=== PATIENT | female | born 1990 | race Hispanic/Latino ===

== ENCOUNTER 2017-02-22 11:12 | Emergency (ER) | payer SELFPAY ==
[~2017-02-22] VITALS: Ht 167.6 cm; Wt 99.8 kg
[~2017-02-22 11:12] MED LIST: NKM
[2017-02-22] MEDS ORDERED: Ketorolac 30mg Inj IV ONE (11:15)
--- NOTE | 2017-02-22 11:29 | Emergency Room Report ---
History of Present Illness General Chief Complaint: Abdominal Pain Source: Patient, EMS Present Illness HPI Patient present with right-sided abdominal pain Started last night Patient reports several episodes of vomiting and diarrhea Which began together Denies any fever Denies any blood in stool Denies any headache visual changes pain is that of 10 Patient reports lower back also right upper and lower abdomen Denies any dysuria frequency denies any vaginal discharge Patient has had previous cholecystectomy Allergies: Coded Allergies: No Known Allergies (Verified , 06/21/11) Patient History Past Medical History: see triage record Pertinent Family History: none Reviewed Nursing Documentation: PMH: Agreed, PSxH: Agreed Nursing Documentation-PMH Hx Gastrointestinal Problems: Yes - Cholecystectomy 2011 Review of Systems All Other Systems: negative except mentioned in HPI Physical Exam Vital Signs Date Time Temp Pulse Resp B/P Pulse Ox O2 Delivery O2 Flow Rate FiO2 02/22/17 11:01 98.1 95 16 105/65 99 Room Air Sp02 EP Interpretation: reviewed, normal General Appearance: moderate distress - Patient in acute pain Head: normocephalic, atraumatic Eyes: bilateral eye EOMI, bilateral eye PERRL ENT: hearing grossly normal, normal pharynx, TMs + canals normal, uvula midline Neck: full range of motion, supple, no meningismus, no bony tend Respiratory: lungs clear, normal breath sounds, no rhonchi, no respiratory distress, no retraction, no accessory muscle use Cardiovascular #1: normal peripheral pulses, regular rate, rhythm, no edema, no gallop, no JVD, no murmur Gastrointestinal: normal bowel sounds, soft, no mass, no organomegaly, non- distended, no guarding, no hernia, no pulsatile mass, no rebound - However the patient subjectively uncomfortable on the right upper and lower abdomen Genitourinary: no CVA tenderness Musculoskeletal: normal inspection Neurologic: oriented x3, responsive, rib knitter III-XII nml as tested, motor strength/ tone normal, sensory intact Psychiatric: mood/affect normal Skin: normal color, no rash, warm/dry, palpation normal Lymphatic: normal inspection, no adenopathy Medical Decision Making Diagnostic Impression: Primary Impression: Vomiting Additional Impression: Abdominal pain ER Course With the patient's history and examination, multiple differentials considered, including but not limited to , ectopic , ovarian torsion, gastritis, cholecystitis, pancreatitis, appendicitis Patient's CAT scan reveals no acute disease with the appendix Mild hepatic steatosis Patient's blood work is at baseline levels as well Patient has continued to be significantly improved and at this time stable for initial conservative outpatient trial Labs Test 02/22/17 11:15 02/22/17 11:30 White Blood Count 7.5 K/UL (4.8-10.8) Red Blood Count 4.72 M/UL (4.20-5.40) Hemoglobin 13.7 G/DL (12.0-16.0) Hematocrit 42.5 % (37.0-47.0) Mean Corpuscular Volume 90 FL (80-99) Mean Corpuscular Hemoglobin 28.9 PG (27.0-31.0) Mean Corpuscular Hemoglobin Concent 32.1 G/DL (32.0-36.0) Red Cell Distribution Width 12.2 % (11.6-14.8) Platelet Count 288 K/UL (150-450) Mean Platelet Volume 7.0 FL (6.5-10.1) Neutrophils (%) (Auto) 70.8 % (45.0-75.0) Lymphocytes (%) (Auto) 17.0 % (20.0-45.0) Monocytes (%) (Auto) 7.8 % (1.0-10.0) Eosinophils (%) (Auto) 3.5 % (0.0-3.0) Basophils (%) (Auto) 1.0 % (0.0-2.0) Sodium Level 139 mEQ/L (135-145) Potassium Level 4.1 mEQ/L (3.4-4.9) Chloride Level 100 mEQ/L (98-107) Carbon Dioxide Level 23 mEQ/L (20-30) Anion Gap 16 (5-15) Blood Urea Nitrogen 10 mg/dL (7-23) Creatinine 0.6 mg/dL (0.5-0.9) Estimat Glomerular Filtration Rate > 60 mL/min (>60) Glucose Level 96 mg/dL (74-106) Calcium Level 8.8 mg/dL (8.6-10.2) Total Bilirubin 0.4 mg/dL (0.0-1.2) Aspartate Amino Transf (AST/SGOT) 42 U/L (5-40) Alanine Aminotransferase (ALT/SGPT) 57 U/L (3-33) Alkaline Phosphatase 90 U/L (35-104) Total Protein 7.6 g/dL (6.6-8.7) Albumin 4.2 g/dL (3.5-5.2) Globulin 3.4 g/dL Albumin/Globulin Ratio 1.2 (1.0-2.7) Lipase 26 U/L (< 60) Urine Color Pale yellow Urine Appearance Clear Urine pH 6.5 (4.5-8.0) Urine Specific [place] 1.015 (1.005-1.035) Urine Protein Negative (NEGATIVE) Urine Glucose (UA) Negative (NEGATIVE) Urine Ketones Negative (NEGATIVE) Urine Occult Blood 4+ (NEGATIVE) Urine Nitrite Negative (NEGATIVE) Urine Bilirubin Negative (NEGATIVE) Urine Urobilinogen Normal MG/DL (0.0-1.0) Urine Leukocyte Esterase 2+ (NEGATIVE) Urine RBC 5-10 /HPF (0 - 2) Urine WBC 5-10 /HPF (0 - 2) Urine Squamous Epithelial Cells Few /LPF (NONE/OCC) Urine Bacteria Few /HPF (NONE) Urine HCG, Qualitative Negative Urine Opiates Screen Negative (NEGATIVE) Urine Barbiturates Screen Negative (NEGATIVE) Phencyclidine (PCP) Screen Negative (NEGATIVE) Urine Amphetamines Screen Negative (NEGATIVE) Urine Benzodiazepines Screen Negative (NEGATIVE) Urine Cocaine Screen Negative (NEGATIVE) Urine Marijuana (THC) Screen Negative (NEGATIVE) CT/MRI/US Diagnostic Results CT/MRI/US Diagnostic Results : Impression CT abdomen pelvis: No acute disease with the appendix, appendicolith, mild hepatic steatosis Last Vital Signs Date Time Temp Pulse Resp B/P Pulse Ox O2 Delivery O2 Flow Rate FiO2 02/22/17 11:01 98.1 95 16 105/65 99 Room Air Status: improved Disposition: HOME, SELF-CARE Condition: Improved Scripts Ondansetron Odt* (ZOFRAN ODT*) 4 Mg Tab.rapdis 4 MG ORAL Q6H Y for Nausea & Vomiting, #12 TAB 0 Refills Prov: KELLIRZAFAR D.O. 02/22/17 Acetaminophen With Codeine (T#3) (TYLENOL #3 TAB*) Y Tab 1 TAB ORAL Q8H Y for For Pain, #10 TAB Prov: IVONNEDORZAFAR D.O. 02/22/17 Ibuprofen* (MOTRIN*) 600 Mg Tablet 600 MG ORAL Q8H Y for For Pain, #20 TAB 0 Refills Prov: ZAFAR PATEL D.O. 02/22/17 Additional Instructions: Patient is provided with the discharge instructions notified to follow up with primary doctor in the next 2-3 days otherwise return to the er with any worsening symptoms. Please note that this report is being documented using [employer] technology. This can lead to erroneous entry secondary to incorrect interpretation by the dictating instrument. ZAFAR PATEL D.O. February 22, 2017 11:29
[2017-02-22 11:35] LABS: EOSINOPHILS % (AUTO) 3.5 % (0.0-3.0); MEAN CORPUSCULAR HEMOGLOBIN 28.9 PG (27.0-31.0); MEAN CORPUSCULAR HGB CONC 32.1 G/DL (32.0-36.0); MEAN CORPUSCULAR VOLUME 90 FL (80-99); MONOCYTES % (AUTO) 7.8 % (1.0-10.0); NEUTROPHILS % (AUTO) 70.8 % (45.0-75.0); PLATELET COUNT 288 K/UL (150-450); RED BLOOD COUNT 4.72 M/UL (4.20-5.40); RED CELL DISTRIBUTION WIDTH 12.2 % (11.6-14.8); WHITE BLOOD COUNT 7.5 K/UL (4.8-10.8)
[2017-02-22 11:42] VITALS: BP 105/65
[2017-02-22 11:45] LABS: APPEARANCE,URINE CLEAR; KETONES,URINE NEGATIVE (NEGATIVE); LEUKOCYTE ESTERASE ,URINE 2+ (NEGATIVE); NITRITE,URINE NEGATIVE (NEGATIVE); PH,URINE 6.5 (4.5-8.0); PROTEIN,URINE NEGATIVE (NEGATIVE); UROBILINOGEN,URINE NORMAL MG/DL (0.0-1.0)
[2017-02-22 11:56] LABS: ALANINE AMINOTRANSFERASE 57 U/L (3-33); ALBUMIN/GLOBULIN RATIO 1.2 (1.0-2.7); ANION GAP 16 (5-15); ASPARTATE AMINO TRANSFERASE 42 U/L (5-40); CALCIUM 8.8 mg/dL (8.6-10.2); CARBON DIOXIDE 23 mEQ/L (20-30); CHLORIDE 100 mEQ/L (98-107); CREATININE 0.6 mg/dL (0.5-0.9); GLOMERULAR FILTRATION RATE > 60 mL/min (>60); HEMOLYSIS 14; LIPASE 26 U/L (< 60); POTASSIUM 4.1 mEQ/L (3.4-4.9); SODIUM 139 mEQ/L (135-145); TOTAL PROTEIN 7.6 g/dL (6.6-8.7)
[2017-02-22 12:40] LABS: BACTERIA,URINE FEW /HPF; SQUAMOUS EPITHELIAL CELL,UR FEW /LPF (NONE/OCC)
[2017-02-22] MEDS ORDERED: ACETAMINOPHEN-1 EAC1 ORAL (13:50)
[2017-02-22] MEDS ORDERED: IBUPROFEN600 MG ORAL (13:50)
[2017-02-22 13:57] VITALS: BP 106/60
[2017-02-22] MEDS ORDERED: ZOFRAN ODT4 MG ORAL (13:57)
[2017-02-22 13:59] VITALS: BP 106/60
--- NOTE | 2017-02-24 09:39 | Diagnostic Imaging Report ---
Indication: Abdominal pain Technique: Continuous helical transaxial imaging of the abdomen and pelvis was obtained from the lung bases to the pubic symphysis during intravenous contrast administration. Coronal 2-D reformats were also obtained. Study obtained in a Siemens sensation [address] Total Dose length Product (DLP): [address] Dose Index Volume (CTDIvol): 20 mGy Comparison: 06-21-11 Findings: The lung bases are clear. The liver is mildly hypodense consistent with fatty infiltration. Cholecystectomy noted. The spleen and pancreas appear unremarkable. There is a tiny nonobstructive stones suspected within the lower pole the right kidney. There is no hydronephrosis identified. Appendix is normal. No free fluid or free air identified. Uterus noted. Impression: Tiny nonobstructive stone in the right kidney. No inflammatory process, abscess or other acute findings identified. Normal appendix Fatty liver Status post cholecystectomy The CT scanner at [facility] is accredited by the [employer] and the scans are performed using protocols designed to limit radiation exposure to as low as reasonably achievable to attain images of sufficient resolution adequate for diagnostic evaluation.
== END 2017-02-22 14:04 | disposition home or self-care (01) ==
LOC: EDBD 11:12 → EMR 11:44
DX: R10.9 Unspecified abdominal pain (principal); R11.10 Vomiting, unspecified; Z90.49 Acquired absence of other specified parts of digestive tract
CPT/HCPCS: 36415; 74177; 80053; 80300; 81003; 81025; 83690; 85025; 96374; 96375; 99284; J1885; Q9967

== ENCOUNTER 2019-02-28 12:17 | Emergency (ER) | payer MEDICAID ==
[~2019-02-28] VITALS: Ht 157.5 cm; Wt 88.0 kg
[~2019-02-28 12:17] MED LIST changes: +ACETAMINOPHEN-1 EAC1 ORAL; +IBUPROFEN600 MG ORAL; +ZOFRAN ODT4 MG ORAL
--- NOTE | 2019-02-28 12:30 | NUR ---
ED Nurse Note: Patient walked in to ER c/o constipation for 2 days. pt aao x4 and ambulatory. pt requesting test because market test came out positive but she has not seen [facility] PROFESSION[facility] doctor yet. no N/V. skin clean and intact.
--- NOTE | 2019-02-28 12:44 | NUR ---
ED Nurse Note: Urine sent to the lab.
[2019-02-28 12:45] VITALS: BP 103/71
[2019-02-28 12:46] LABS: APPEARANCE,URINE CLEAR; BILIRUBIN, URINE NEGATIVE (NEGATIVE); COLOR,URINE PALE YELLOW; GLUCOSE, URINE (UA) NEGATIVE (NEGATIVE); KETONES,URINE NEGATIVE (NEGATIVE); LEUKOCYTE ESTERASE ,URINE 2+ (NEGATIVE); NITRITE,URINE NEGATIVE (NEGATIVE); PH,URINE 6 (4.5-8.0); PROTEIN,URINE NEGATIVE (NEGATIVE); UROBILINOGEN,URINE NORMAL MG/DL (0.0-1.0)
--- NOTE | 2019-02-28 13:12 | Emergency Room Report ---
History of Present Illness General Chief Complaint: Constipation Present Illness HPI 29-year-old female presents to the emergency department complaining of constipation during early . She denies abdominal pain, or cramps. She reports that she is unable to have BM today, feels 8/10 in severity fullness in the rectum with urge to defecate. pt. reports she is afraid to "push" because she is and worried she could cause complications. She is .Denies N/ V/F/C denies hx of constipation. PT. denies blood in the stool. Denies vaginal bleeding or d/c. She reports her last BM was yesterday. Allergies: Coded Allergies: No Known Allergies (Verified , 06/21/11) Patient History Past Medical History: see triage record Past Surgical History: none Pertinent Family History: none Last Menstrual Period: december Now: Yes : 1 Para: 0 Reviewed Nursing Documentation: PMH: Agreed; PSxH: Agreed Nursing Documentation-PMH Hx Gastrointestinal Problems: Yes - Cholecystectomy 2011 Review of Systems All Other Systems: negative except mentioned in HPI Physical Exam Vital Signs Date Time Temp Pulse Resp B/P (MAP) Pulse Ox O2 Delivery O2 Flow Rate FiO2 02/28/19 12:22 98.1 91 16 7 Room Air 02/28/19 12:45 103/71 Sp02 EP Interpretation: reviewed, normal General Appearance: no apparent distress, alert, GCS 15, non-toxic Head: normocephalic, atraumatic Eyes: bilateral eye normal inspection, bilateral eye PERRL ENT: hearing grossly normal, normal voice Neck: full range of motion Respiratory: lungs clear, normal breath sounds, speaking full sentences Cardiovascular #1: regular rate, rhythm Gastrointestinal: normal bowel sounds, non tender, soft, non-distended, no guarding Rectal: deferred Genitourinary: normal inspection, no CVA tenderness Musculoskeletal: back normal, gait/station normal, normal range of motion, non- tender Neurologic: alert, oriented x3, responsive, motor strength/tone normal, sensory intact, speech normal, grossly normal Psychiatric: judgement/insight normal Skin: normal color, no rash, warm/dry, well hydrated Medical Decision Making PA Attestation Dr. Stevenson is my supervising Physician whom patient management has been discussed with. Diagnostic Impression: Primary Impression: Positive test Additional Impression: Constipation during Qualified Codes: O99.611 - Diseases of the digestive system complicating , first trimester; K59.00 - Constipation, unspecified ER Course 29-year-old female presents to the emergency department complaining of constipation during early . She denies abdominal pain, or cramps. She reports that she is unable to have BM today, feels 8/10 in severity fullness in the rectum with urge to defecate. pt. reports she is afraid to "push" because she is and worried she could cause complications. She is .Denies N/ V/F/C denies hx of constipation. PT. denies blood in the stool. Denies vaginal bleeding or d/c. She reports her last BM was yesterday. Ddx considered but are not limited to constipation , appendicitis, SBO, ectopic , PID, tubo-ovarian abscess. Vital signs: are WNL, pt. is afebrile H&PE are most consistent with constipation. bowl sounds are normo active. ORDERS: none required at this time. pt. NAD, non-toxic in appearance. Last BM was yesterday. ED INTERVENTIONS: -PT. offered Enema, she wants to wait and take it at home. will start pt. on Colace and vitamins. -I do not identify an emergent condition at this time. With current presentation , pt. is stable for close outpatient follow up and conservative treatment. D/ w pt. to return promptly to ED with worsening or new symptoms.- Pt. verbalizes' understanding and agreement with proposed treatment plan. DISCHARGE: At this time pt. is stable for d/c to home. Will provide printed patient care instructions, and any necessary prescriptions. Care plan and follow up instructions have been discussed with the patient prior to discharge. Last Vital Signs Date Time Temp Pulse Resp B/P (MAP) Pulse Ox O2 Delivery O2 Flow Rate FiO2 02/28/19 12:45 98.1 80 16 103/71 97 Room Air Status: improved Disposition: HOME, SELF-CARE Condition: Stable Scripts Na Phos,M-B/Na Phos,Di-Ba* (FLEET ENEMA*) 133 Ml Enema 133 ML RECTAL DAILY for 3 Days, #3 APPLIC 0 Refills Prov: Minerva Sifuentes 02/28/19 Vit #91/Fe Fum/Fa/Dha ( + DHA COMBO PACK) 1 Each Combo..pkg 1 EACH PO DAILY, #1 PACK 2 Refills Prov: Minerva Sifuentes 02/28/19 Docusate Sodium* (COLACE*) 100 Mg Capsule 100 MG ORAL THREE TIMES A DAY, #30 CAP Prov: Minerva Sifuentes 02/28/19 Patient Instructions: Constipation, Adult, First Trimester of , Easy- to-Read Additional Instructions: Take medications as directed. Follow up with a Primary Care Provider or OBGYN in 3-5 days, even if your symptoms have resolved. --Please review list of primary care clinics, if you do not already have a primary care provider Return sooner to ED if new symptoms occur, or current symptoms become worse. - Please note that this Emergency Department Report was dictated using [employer] technology software, occasionally this can lead to erroneous entry secondary to interpretation by the dictation equipment. Mienrva Sifuentes February 28, 2019 13:12
[2019-02-28] MEDS ORDERED: COLACE100 MG ORAL (13:23)
[2019-02-28] MEDS ORDERED: FLEET ENEMA133 ML RECTAL (13:23)
[2019-02-28] MEDS ORDERED: PRENATAL + DHA1 EAC1 PO (13:23)
[2019-02-28 13:26] VITALS: BP 103/71
--- NOTE | 2019-02-28 13:28 | NUR ---
ER DISCHARGE NOTE: Patient is cleared to be discharged per ERPA, pt is aox4, accompanied by spouse, on room air, with stable vital signs. pt was given dc and prescription instructions, pt was able to verbalize understanding, pt id band removed. pt is able to ambulate with steady gait. pt took all belongings.
== END 2019-02-28 13:30 | disposition home or self-care (01) ==
LOC: EMR 13:20
DX: O99.611 Diseases of the digestive system complicating pregnancy, first trimester (principal); K59.00 Constipation, unspecified; Z3A.00 Weeks of gestation of pregnancy not specified
CPT/HCPCS: 81003; 81025; 99283

== ENCOUNTER 2019-03-20 12:25 | Emergency (ER) | payer MEDICAID ==
[~2019-03-20] VITALS: Ht 160 cm; Wt 97.1 kg
[~2019-03-20 12:25] MED LIST changes: +COLACE100 MG ORAL; +FLEET ENEMA133 ML RECTAL; +PRENATAL + DHA1 EAC1 PO
[2019-03-20] MEDS ORDERED: NITROFURANTOIN100 M2 ORAL (12:34)
--- NOTE | 2019-03-20 12:39 | NUR ---
ED Nurse Note: RADIOLOGY NOTIFIED ABOUT ULTRASOUND ORDER.
--- NOTE | 2019-03-20 12:39 | NUR ---
ED Nurse Note: Pt walked in to ER c/o lower abdominal cramping and blood and mucus noted when she wiped it this morning. pt aao x4 and ambulatory. skin clean and intact. pt on gown and cardiac sonographer. pt provided urine sample.
[2019-03-20 12:40] VITALS: BP 114/63
[2019-03-20] MEDS ORDERED: Acetaminophen 500mg (ES) tab ORAL ONE (12:45)
[2019-03-20 12:56] LABS: APPEARANCE,URINE CLEAR; BILIRUBIN, URINE NEGATIVE (NEGATIVE); COLOR,URINE PALE YELLOW; GLUCOSE, URINE (UA) NEGATIVE (NEGATIVE); KETONES,URINE NEGATIVE (NEGATIVE); LEUKOCYTE ESTERASE ,URINE NEGATIVE (NEGATIVE); NITRITE,URINE NEGATIVE (NEGATIVE); PH,URINE 7 (4.5-8.0); PROTEIN,URINE NEGATIVE (NEGATIVE); UROBILINOGEN,URINE NORMAL MG/DL (0.0-1.0)
[2019-03-20 13:02] LABS: BASOPHILS % (AUTO) 0.7 % (0.0-2.0); HEMATOCRIT 37.3 % (37.0-47.0); HEMOGLOBIN 12.7 G/DL (12.0-16.0); LYMPHOCYTES % (AUTO) 20.3 % (20.0-45.0); MEAN CORPUSCULAR VOLUME 89 FL (80-99); MONOCYTES % (AUTO) 5.5 % (1.0-10.0); NEUTROPHILS % (AUTO) 71.5 % (45.0-75.0); PLATELET COUNT 317 K/UL (150-450); RED CELL DISTRIBUTION WIDTH 12.5 % (11.6-14.8); WHITE BLOOD COUNT 10.6 K/UL (4.8-10.8)
--- NOTE | 2019-03-20 13:06 | Emergency Room Report ---
History of Present Illness General Chief Complaint: Complications Source: Patient (Eduardo Vasquez MD) Present Illness HPI 29-year-old female presents ED for evaluation. Patient walked in complaining of lower abdominal pain and bleeding which started today. States she is about 6 weeks . States she has care and has had an ultrasound with IUP established. Bleeding started today. Pain is cramping, lower, 7 out of 10 , nonradiating. Denies fevers or chills. Denies nausea or vomiting. No other aggravating relieving factors. Denies any other associated symptoms (Eduardo Vasquez MD) Allergies: Coded Allergies: No Known Allergies (Verified , 06/21/11) Patient History Past Medical History: none Past Surgical History: rebeca Pertinent Family History: none Social History: Denies: smoking, alcohol use, drug use Now: Yes Immunizations: UTD Reviewed Nursing Documentation: PMH: Agreed; PSxH: Agreed (Eduardo Vasquez MD) Nursing Documentation-PMH Past Medical History: No History, Except For Hx Gastrointestinal Problems: Yes - Cholecystectomy 2011 (Eduardo Vasquez MD) Review of Systems All Other Systems: negative except mentioned in HPI (Eduardo Vasquez MD) Physical Exam Vital Signs Date Time Temp Pulse Resp B/P (MAP) Pulse Ox O2 Delivery O2 Flow Rate FiO2 03/20/19 12:29 97.2 93 18 101/56 (71) 98 Room Air Sp02 EP Interpretation: reviewed, normal General Appearance: no apparent distress, alert, GCS 15, non-toxic Head: normocephalic, atraumatic Eyes: bilateral eye normal inspection, bilateral eye PERRL ENT: hearing grossly normal, normal pharynx, no angioedema, normal voice Neck: full range of motion, supple/symm/no masses Respiratory: chest non-tender, lungs clear, normal breath sounds, speaking full sentences Cardiovascular #1: regular rate, rhythm, no edema Cardiovascular #2: 2+ carotid (R), 2+ carotid (L), 2+ radial (R), 2+ radial (L) , 2+ dorsalis pedis (R), 2+ dorsalis pedis (L) Gastrointestinal: normal bowel sounds, non tender, soft, non-distended, no guarding, no rebound Rectal: deferred Genitourinary: normal inspection, no CVA tenderness Musculoskeletal: back normal, gait/station normal, normal range of motion, non- tender Neurologic: alert, oriented x3, responsive, motor strength/tone normal, sensory intact, speech normal Psychiatric: judgement/insight normal, memory normal, mood/affect normal, no suicidal/homicidal ideation Reflexes: 3+ bicep (R), 3+ bicep (L), 3+ tricep (R), 3+ tricep (L), 3+ knee (R) , 3+ knee (L) Skin: normal color, no rash, warm/dry, well hydrated Lymphatic: no adenopathy (Eduardo Vasquez MD) Medical Decision Making Diagnostic Impression: Primary Impression: Threatened miscarriage ER Course Please see above. Never . Improved. Discussed results and need for follow up. Patient stable for outpatient observation and treatment. Laboratory Tests Test 03/20/19 12:35 03/20/19 12:47 Urine Color Pale yellow Urine Appearance Clear Urine pH 7 (4.5-8.0) Urine Specific [place] 1.005 (1.005-1.035) Urine Protein Negative (NEGATIVE) Urine Glucose (UA) Negative (NEGATIVE) Urine Ketones Negative (NEGATIVE) Urine Blood Negative (NEGATIVE) Urine Nitrite Negative (NEGATIVE) Urine Bilirubin Negative (NEGATIVE) Urine Urobilinogen Normal MG/DL (0.0-1.0) Urine Leukocyte Esterase Negative (NEGATIVE) Urine HCG, Qualitative Positive (NEGATIVE) White Blood Count 10.6 K/UL (4.8-10.8) Red Blood Count 4.20 M/UL (4.20-5.40) Hemoglobin 12.7 G/DL (12.0-16.0) Hematocrit 37.3 % (37.0-47.0) Mean Corpuscular Volume 89 FL (80-99) Mean Corpuscular Hemoglobin 30.3 PG (27.0-31.0) Mean Corpuscular Hemoglobin Concent 34.1 G/DL (32.0-36.0) Red Cell Distribution Width 12.5 % (11.6-14.8) Platelet Count 317 K/UL (150-450) Mean Platelet Volume 5.9 FL (6.5-10.1) L Neutrophils (%) (Auto) 71.5 % (45.0-75.0) Lymphocytes (%) (Auto) 20.3 % (20.0-45.0) Monocytes (%) (Auto) 5.5 % (1.0-10.0) Eosinophils (%) (Auto) 2.0 % (0.0-3.0) Basophils (%) (Auto) 0.7 % (0.0-2.0) Sodium Level 136 MMOL/L (136-145) Potassium Level 3.9 MMOL/L (3.5-5.1) Chloride Level 103 MMOL/L (98-107) Carbon Dioxide Level 23 MMOL/L (21-32) Anion Gap 11 mmol/L (5-15) Blood Urea Nitrogen 12 mg/dL (7-18) Creatinine 0.7 MG/DL (0.55-1.30) Estimate Glomerular Filtration Rate > 60 mL/min (>60) Glucose Level 146 MG/DL (74-106) H Calcium Level 9.2 MG/DL (8.5-10.1) Total Bilirubin 0.3 MG/DL (0.2-1.0) Aspartate Amino Transferase (AST) 25 U/L (15-37) Alanine Aminotransferase (ALT) 30 U/L (12-78) Alkaline Phosphatase 65 U/L (46-116) Total Protein 7.7 G/DL (6.4-8.2) Albumin 3.3 G/DL (3.4-5.0) L Globulin 4.4 g/dL Albumin/Globulin Ratio 0.8 (1.0-2.7) L Lipase 110 U/L (73-393) Human Chorionic Gonadotropin, Quant 76975 mIU/mL (1-6) H (Kameron Lam MD) CT/MRI/US Diagnostic Results CT/MRI/US Diagnostic Results : Imaging Test Ordered: Pelvic ultrasound Impression 6 weeks 5 days with heartbeat - possible L hydrosalpinx (Kameron Lam MD) Last Vital Signs Date Time Temp Pulse Resp B/P (MAP) Pulse Ox O2 Delivery O2 Flow Rate FiO2 03/20/19 12:29 97.2 93 18 101/56 (71) 98 Room Air (Eduardo Vasquez MD) Last Vital Signs Date Time Temp Pulse Resp B/P (MAP) Pulse Ox O2 Delivery O2 Flow Rate FiO2 03/20/19 18:09 97.5 72 16 112/78 100 Room Air Status: improved (Kameron Lam MD) Disposition: HOME, SELF-CARE Condition: Improved Referrals: NON PHYSICIAN (PCP) Eduardo Vasquez MD Mar 20, 2019 13:06 Kameron Lam MD Mar 20, 2019 17:25
[2019-03-20 13:15] LABS: ANION GAP 11 mmol/L (5-15); BLOOD UREA NITROGEN 12 mg/dL (7-18); CALCIUM 9.2 MG/DL (8.5-10.1); CARBON DIOXIDE 23 MMOL/L (21-32); CHLORIDE 103 MMOL/L (98-107); CREATININE 0.7 MG/DL (0.55-1.30); POTASSIUM 3.9 MMOL/L (3.5-5.1); SODIUM 136 MMOL/L (136-145)
[2019-03-20 13:19] LABS: ALANINE AMINOTRANSFERASE 30 U/L (12-78); ALBUMIN 3.3 G/DL (3.4-5.0); ALBUMIN/GLOBULIN RATIO 0.8 (1.0-2.7); ALKALINE PHOSPHATASE 65 U/L (46-116); ASPARTATE AMINO TRANSFERASE 25 U/L (15-37); BILIRUBIN,TOTAL 0.3 MG/DL (0.2-1.0)
--- NOTE | 2019-03-20 13:50 | NUR ---
ED Nurse Note: GRACE spoke with [facility] and per US department, they will be available by 1500.
--- NOTE | 2019-03-20 13:58 | NUR ---
ED Nurse Note: RADIOLOGY DEPT CALLED TO RECHECK ON US TECH STATUS... NEW ETA GIVEN IS 1530.
[2019-03-20 14:40] VITALS: BP 107/81
--- NOTE | 2019-03-20 14:40 | NUR ---
ED Nurse Note: significant other at bedside.
--- NOTE | 2019-03-20 16:03 | NUR ---
ED Nurse Note: US tech arrived.
--- NOTE | 2019-03-20 16:56 | Diagnostic Imaging Report ---
EXAM: US First Trimester, Transabdominal CLINICAL HISTORY: BLD TECHNIQUE: Real-time transabdominal obstetrical ultrasound of the maternal pelvis and a first trimester with image documentation. COMPARISON: None FINDINGS: Uterus: Measures 9.4 x 5.8 cm. Gestational sac identified within the endometrial cavity, with mean sac diameter measuring 2.69 cm. Possible small amount of subchorionic hemorrhage near the lower uterine segment/cervix. An embryonic pole is identified. [place]-rump length measures 0.81 cm. heart rate 123 bpm. Cervix is long and closed. Ovaries: The right ovary measures 3.4 x 3.4 x 5.8 cm. Right ovarian cyst measuring 3.4 cm. The left ovary measures 2.2 x 2.2 x 2.6 cm. The ovaries demonstrate normal color flow. Other: Trace free fluid is identified. Cystic somewhat tubular structure in the left adnexal region may represent dilated fallopian tube/hydrosalpinx. LMP: 02/02/2019 GA by LMP: 6 weeks 4 days ZOIE by LMP: 11/09/2019 Average ultrasound age: 6 weeks 6 days ZOIE by ultrasound: 11/07/2019 IMPRESSION: Single intrauterine with heart rate of 123 bpm. Possible small amount of subchorionic hemorrhage near the lower uterine segment/cervix. Possible left hydrosalpinx.
--- NOTE | 2019-03-20 17:18 | NUR ---
ED Nurse Note: pt requested to talk to ERMD. ERMD made aware.
[2019-03-20 18:09] VITALS: BP 112/78
--- NOTE | 2019-03-20 18:10 | NUR ---
ED Nurse Note: Pt cleared by health care Provider for discharge. DC instructions/prescription was given and explained to pt and verbalized understanding of teachings. All medical deviecs such as ID band removed. Pt is AAO x4, ambulatory and left with all personal belongings.
== END 2019-03-20 18:11 | disposition home or self-care (01) ==
LOC: EMR 12:40
DX: O20.0 Threatened abortion (principal); Z3A.01 Less than 8 weeks gestation of pregnancy; Z90.49 Acquired absence of other specified parts of digestive tract
CPT/HCPCS: 36415; 76801; 80053; 81003; 81025; 83690; 84702; 85025; 86900; 86901; 99284; J7040

== ENCOUNTER 2020-07-23 10:03 | Emergency (ER) | payer SELFPAY ==
[~2020-07-23] VITALS: Ht 157.5 cm; Wt 109.3 kg
[~2020-07-23 10:03] MED LIST changes: +NITROFURANTOIN100 M2 ORAL
[2020-07-23] MEDS ORDERED: Sodium Chloride 550 ML IV SCH (10:45)
--- NOTE | 2020-07-23 10:45 | Emergency Room Report ---
History of Present Illness General Chief Complaint: Abdominal Pain Source: Patient Present Illness HPI Patient presents with mid abdominal pain and back pain for 1 week. She has not had a period since February. Her breasts are darker at this time also and there is slightly tender. She has a little bit of nausea occasionally. She has had occasional loose stools also. There is no discharge and she denies dysuria. She has had feelings like this when she has had urinary tract infections in the past. She rates the pain 8/10. No vomiting. No melena. She denies take any medication for this pain. She has an [id number] at home. She is not breast-feeding. He was born premature. H/O ulcers. Previously which she was taking preventative medication but is not taking any at this time. Sometimes his pain radiates up into the epigastric area. No fevers, chills, sore throat, chest pain, palpitations, shortness of breath, joint pain, rashes, depression, anxiety, visual changes, dizziness, headache. Allergies: Coded Allergies: No Known Allergies (Verified , 06/21/11) COVID-19 Screening Contact w/high risk pt: No Experienced COVID-19 symptoms?: No COVID-19 Testing performed RADIO DISC JOCKEY: No Patient History Past Medical History: see triage record Social History: Denies: smoking Social History Narrative Has [id number] at home Last Menstrual Period: in february Reviewed Nursing Documentation: PMH: Agreed; PSxH: Agreed Nursing Documentation-PMH Past Medical History: No History, Except For Hx Gastrointestinal Problems: Yes - Cholecystectomy 2011 Review of Systems All Other Systems: negative except mentioned in HPI Physical Exam Vital Signs Date Time Temp Pulse Resp B/P (MAP) Pulse Ox O2 Delivery O2 Flow Rate FiO2 07/23/20 10:08 97.5 78 18 93/62 (72) 99 Room Air Sp02 EP Interpretation: reviewed, normal General Appearance: well appearing, no apparent distress, GCS 15 Head: normocephalic Eyes: bilateral eye normal inspection, bilateral eye PERRL, bilateral eye EOMI ENT: moist mucus membranes Neck: supple Respiratory: lungs clear, normal breath sounds Cardiovascular #1: regular rate, rhythm Cardiovascular #2: 2+ radial (R) Gastrointestinal: no guarding, no rebound, tenderness, overweight Genitourinary: no CVA tenderness, deferred - for ultrasound Musculoskeletal: back normal, normal range of motion, gait/station normal Neurologic: alert, oriented x3, grossly normal, normal inspection Psychiatric: mood/affect normal Skin: no rash, warm/dry, other - umbilical scars Medical Decision Making Diagnostic Impression: Primary Impression: Abdominal pain Qualified Codes: R10.84 - Generalized abdominal pain Additional Impressions: Ovarian cyst Qualified Codes: N83.202 - Unspecified ovarian cyst, left side Irregular menstrual bleeding ER Course Patient presents with abdominal pain back pain. Differential includes , ectopic, UTI, pyelonephritis, appendicitis, pancreatitis, diverticul itis amongst others. Patient will be evaluated with labs and ultrasound. Patient treated with Tylenol and IV hydration. Preg neg. UA clear. WBC normal. CMP normal. Ultrasound with ovarian cyst. Improved but AMOS. Toradol ordered. Improved with treatment. Discussed the need for outpatient follow up. Patient stable for outpatient observation and treatment. Laboratory Tests Test 07/23/20 10:15 07/23/20 10:45 Urine Color Pale yellow Urine Appearance Slightly cloudy Urine pH 5 (4.5-8.0) Urine Specific [place] 1.015 (1.005-1.035) Urine Protein Negative (NEGATIVE) Urine Glucose (UA) Negative (NEGATIVE) Urine Ketones Negative (NEGATIVE) Urine Blood 1+ (NEGATIVE) H Urine Nitrite Negative (NEGATIVE) Urine Bilirubin Negative (NEGATIVE) Urine Urobilinogen Normal MG/DL (0.0-1.0) Urine Leukocyte Esterase 1+ (NEGATIVE) H Urine RBC 0-2 /HPF (0 - 2) Urine WBC 2-4 /HPF (0 - 2) Urine Squamous Epithelial Cells Occasional /LPF Urine Bacteria Occasional /HPF (NONE) Urine HCG, Qualitative Negative (NEGATIVE) White Blood Count 7.6 K/UL (4.8-10.8) Red Blood Count 4.73 M/UL (4.20-5.40) Hemoglobin 13.9 G/DL (12.0-16.0) Hematocrit 40.2 % (37.0-47.0) Mean Corpuscular Volume 85 FL (80-99) Mean Corpuscular Hemoglobin 29.4 PG (27.0-31.0) Mean Corpuscular Hemoglobin Concent 34.6 G/DL (32.0-36.0) Red Cell Distribution Width 11.4 % (11.6-14.8) L Platelet Count 299 K/UL (150-450) Mean Platelet Volume 6.3 FL (6.5-10.1) L Neutrophils (%) (Auto) 54.2 % (45.0-75.0) Lymphocytes (%) (Auto) 34.6 % (20.0-45.0) Monocytes (%) (Auto) 7.4 % (1.0-10.0) Eosinophils (%) (Auto) 2.5 % (0.0-3.0) Basophils (%) (Auto) 1.3 % (0.0-2.0) Prothrombin Time 11.0 SEC (9.30-11.50) Prothrombin Time INR 1.0 (0.9-1.1) Activated Partial Thromboplast Time 27 SEC (23-33) Sodium Level 135 MMOL/L (136-145) L Potassium Level 4.1 MMOL/L (3.5-5.1) Chloride Level 103 MMOL/L (98-107) Carbon Dioxide Level 24 MMOL/L (21-32) Anion Gap 8 mmol/L (5-15) Blood Urea Nitrogen 15 mg/dL (7-18) Creatinine 0.7 MG/DL (0.55-1.30) Estimated Glomerular Filtration Rate > 60 mL/min (>60) Glucose Level 115 MG/DL (74-106) H Calcium Level 9.3 MG/DL (8.5-10.1) Total Bilirubin 0.2 MG/DL (0.2-1.0) Aspartate Amino Transferase (AST) 38 U/L (15-37) H Alanine Aminotransferase (ALT) 71 U/L (12-78) Alkaline Phosphatase 93 U/L (46-116) Total Protein 8.1 G/DL (6.4-8.2) Albumin 3.7 G/DL (3.4-5.0) Globulin 4.4 g/dL Albumin/Globulin Ratio 0.8 (1.0-2.7) L Lipase 100 U/L (73-393) CT/MRI/US Diagnostic Results CT/MRI/US Diagnostic Results : Imaging Test Ordered: pelvic u/s Impression Complex or 2 adjacent left ovarian or paraovarian cysts measuring up to 3.1 cm. No evidence of ovarian torsion. Last Vital Signs Date Time Temp Pulse Resp B/P (MAP) Pulse Ox O2 Delivery O2 Flow Rate FiO2 07/23/20 13:22 97.9 75 20 122/76 97 Room Air Status: improved Disposition: HOME, SELF-CARE Condition: Improved Scripts Hydrocodone Bit/Acetaminophen 5-325* (NORCO 5-325 TABLET*) 1 Each Tablet 1 TAB ORAL Q6H PRN for FOR PAIN, #10 TAB 0 Refills Prov: Kameron Lam MD 07/23/20 Famotidine* (Pepcid 20mg tablet*) 20 Mg Tablet 20 MG ORAL DAILY for Gerd, #20 TAB 0 Refills Prov: Kameron Lam MD 07/23/20 Kameron Lam MD Jul 23, 2020 10:44
[2020-07-23 10:51] LABS: APPEARANCE,URINE SLIGHTLY CLOUDY; BILIRUBIN, URINE NEGATIVE (NEGATIVE); COLOR,URINE PALE YELLOW; GLUCOSE, URINE (UA) NEGATIVE (NEGATIVE); KETONES,URINE NEGATIVE (NEGATIVE); LEUKOCYTE ESTERASE ,URINE 1+ (NEGATIVE); NITRITE,URINE NEGATIVE (NEGATIVE); PH,URINE 5 (4.5-8.0); PROTEIN,URINE NEGATIVE (NEGATIVE); UROBILINOGEN,URINE NORMAL MG/DL (0.0-1.0)
--- NOTE | 2020-07-23 11:03 | NUR ---
ED Nurse Note: Patient from home and walked in due to abd pain that radiates to her back x 1 week. States that her last menstrual period was February 2020 and unsure if she is . No vomiting or diarrhea. AAO x4, ambulates with steady gait. No respiratory distress.
--- NOTE | 2020-07-23 11:05 | NUR ---
ED Nurse Note: Collected blood abnd urine then sent.
--- NOTE | 2020-07-23 11:10 | NUR ---
ED Nurse Note: US staff at the bed side.
[2020-07-23 11:11] LABS: BASOPHILS % (AUTO) 1.3 % (0.0-2.0); EOSINOPHILS % (AUTO) 2.5 % (0.0-3.0); HEMATOCRIT 40.2 % (37.0-47.0); HEMOGLOBIN 13.9 G/DL (12.0-16.0); LYMPHOCYTES % (AUTO) 34.6 % (20.0-45.0); MEAN CORPUSCULAR VOLUME 85 FL (80-99); MONOCYTES % (AUTO) 7.4 % (1.0-10.0); NEUTROPHILS % (AUTO) 54.2 % (45.0-75.0); PLATELET COUNT 299 K/UL (150-450); RED BLOOD COUNT 4.73 M/UL (4.20-5.40); RED CELL DISTRIBUTION WIDTH 11.4 % (11.6-14.8); WHITE BLOOD COUNT 7.6 K/UL (4.8-10.8)
[2020-07-23 11:14] LABS: ANION GAP 8 mmol/L (5-15); BLOOD UREA NITROGEN 15 mg/dL (7-18); CALCIUM 9.3 MG/DL (8.5-10.1); CARBON DIOXIDE 24 MMOL/L (21-32); CHLORIDE 103 MMOL/L (98-107); CREATININE 0.7 MG/DL (0.55-1.30); POTASSIUM 4.1 MMOL/L (3.5-5.1); SODIUM 135 MMOL/L (136-145)
[2020-07-23 11:18] LABS: ALANINE AMINOTRANSFERASE 71 U/L (12-78); ALBUMIN 3.7 G/DL (3.4-5.0); ALBUMIN/GLOBULIN RATIO 0.8 (1.0-2.7); ALKALINE PHOSPHATASE 93 U/L (46-116); ASPARTATE AMINO TRANSFERASE 38 U/L (15-37); BILIRUBIN,TOTAL 0.2 MG/DL (0.2-1.0)
[2020-07-23] MEDS ORDERED: LORazepam Inj 2mg/ml 1ml ONE (12:00)
--- NOTE | 2020-07-23 12:15 | NUR ---
ED Nurse Note: Dr Lam verbally ordered Haldol 5mg IM. Patient allergic to haldol and medication has been given already. Dr Lam and charge nurse was notified. No allergic reaction or adverse effect noted.
[2020-07-23 12:47] VITALS: BP 113/60
[2020-07-23] MEDS ORDERED: Ketorolac 30mg Inj IV ONE (13:00)
[2020-07-23] MEDS ORDERED: NORCO 5-325 TA1 EAC1 ORAL (13:13)
[2020-07-23] MEDS ORDERED: FAMOTIDINE20 MG ORAL (13:13)
--- NOTE | 2020-07-23 13:15 | Diagnostic Imaging Report ---
EXAM: US Pelvis Transabdominal and Transvaginal, Complete CLINICAL HISTORY: ABD PAIN TECHNIQUE: Real-time complete transabdominal and transvaginal pelvic ultrasound with image documentation. Transvaginal imaging was used for better evaluation of the endometrium and adnexa. COMPARISON: None FINDINGS: Uterus: Measures 8.7 x 3.0 x 5.0. Probable nabothian cysts in the cervix. Endometrium measures 11.6 mm. No associated color Doppler flow within the endometrium. Right ovary: Measures 2.9 x 2.0 x 3.2 cm. Normal appearance with normal color Doppler flow. Left ovary: Measures 4.7 x 2.2 x 4.2 cm. Complex or 2 adjacent cystic structures adjacent to or exophytic off of the left ovary, measuring up to 3.1 cm, which may represent complex cysts. Normal color Doppler flow. Other: No free fluid. No adnexal mass. IMPRESSION: Complex or 2 adjacent left ovarian or paraovarian cysts measuring up to 3.1 cm. No evidence of ovarian torsion.
[2020-07-23 13:22] VITALS: BP 122/76
--- NOTE | 2020-07-23 13:22 | NUR ---
ER DISCHARGE NOTE: Patient is cleared to be discharged per ERMD, pt is aox4, on room air, with stable vital signs. pt was given dc and prescription instructions, pt was able to verbalize understanding, pt id band and iv site removed without complications. pt is able to ambulate with steady gait. pt took all belongings.
== END 2020-07-23 13:22 | disposition home or self-care (01) ==
LOC: EMR 11:01
DX: N83.202 Unspecified ovarian cyst, left side (principal); R10.84 Generalized abdominal pain; Z90.49 Acquired absence of other specified parts of digestive tract
CPT/HCPCS: 36415; 76830; 76856; 80053; 81003; 81025; 83690; 85025; 85610; 85730; 86850; 86900; 86901; 96361; 96374; 99284; J1885; J7040